=== PATIENT | male | born 1985 | race African-American/Black ===

== ENCOUNTER 2019-11-24 14:31 | Inpatient (IN) | payer OTHER ==
[2019-11-24 17:28] VITALS: BMI 32.3
--- NOTE | 2019-11-24 18:52 | HP ---
"CIWA Score Nausea/Vomitin-No Nausea/No Vomiting Muscle Tremors: 4-Moderate,w/Arms Extend Anxiety: 1-Mildly Anxious Agitation: 1-Slight > Activity Paroxysmal Sweats: No Perspiration Orientation: 1-Uncertain about Date Tacttile Disturbances: 0-None Auditory Disturbances: 0-None Visual Disturbances: 0-None Headache: 0-None Present CIWA-Ar Total Score: 7 - Admission Criteria [facility] Guidelines: Admission for Medically Managed Detox: Requires at least one of the followin. CIWA greater than 12 2. Seizures within the past 24 hours 3. Delirium tremens within the past 24 hours 4. Hallucinations within the past 24 hours 5. Acute intervention needed for co occurring medical disorder 6. Acute intervention needed for co occurring psychiatric disorder 7. Severe withdrawal that cannot be handled at a lower level of care (continued vomiting, continued diarrhea, abnormal vital signs) requiring intravenous medication and/or fluids 8. Patient presents the following: Acute intervention needed for co-occurring med or psych disorder (MIHIR: 0.043 HIV+) Admission Criteria Met: Admission criteria met Admission ROS S - HPI Chief Complaint: Here to get detoxed and get help for my alcohol. States needs sobriety to get an apt. Allergies/Adverse Reactions: Allergies Allergy/AdvReac Type Severity Reaction Status Date / Time sulfur [From Sulfur-8] Allergy Severe Rash Verified 11/24/19 17:11 History of Present Illness: First admission for this 34 yo who presents w/ alcohol use disorder, w/mild withdrawal symptoms, seeking detox. Identifies as female. Preferred name is Toribio. MIHIR: 0.043 UTox: + THC/RAZA Denies seizures, blackout, or overdoses. Alcohol use began at age 16. Currently 2 shots - 4x/day and about 1 pint wine 4x /wk for past 2 years. Last drink about 5 a.m.today. Cocaine use began at age 27. Currently uses 2 sniffs 1-2x/wk Marijuana use began at age 16. Currently uses 2-3 x/wk. Nicotine use began at age 16. Smokes 1/2 PPD. Longest sobriety [id number] ( 1 year) PMHx: HIV+; MHHx: Depression. F/u MH provider via telepsych. Denies thoughts of harming self or others. SHx: Domiciled. Unemployed. Denies legal issues. Search Terms: Kapil Kate, 1985 Search Date: 11/24/2019 06:50:57 PM The Drug Utilization Report below displays all of the controlled substance prescriptions, if any, that your patient has filled in the last twelve months. The information displayed on this report is compiled from pharmacy submissions to the Department, and accurately reflects the information as submitted by the pharmacies. This report was requested by: Louann Lainez | Reference #: [id number] There are no results for the search terms that you entered. Exam Limitations: No Limitations - Ebola screening Have you traveled outside of the country in the last 21 days: No Have you had contact with anyone from an Ebola affected area: No Have you been sick,other than usual withdrawal symptoms: No Do you have a fever: No - Review of Systems Constitutional: Weight Stable EENT: reports: No Symptoms Reported Respiratory: reports: No Symptoms reported Cardiac: reports: No Symptoms Reported GI: reports: Indigestion (Heart burn - r/t spicey food) : reports: No Symptoms Reported Musculoskeletal: reports: No Symptoms Reported Integumentary: reports: No Symptoms Reported Neuro: reports: Tremors Endocrine: reports: No Symptoms Reported Hematology: reports: Anemia (HIV+) Psychiatric: reports: Judgement Intact, Orientated x3 (Missed date by 1 day), Anxious, Depressed (Denies thoughts of harming self or others) Patient History - PPD History Previous Implant?: Yes Documented Results: Negative w/proof Implanted On Prior [facility] Admission?: No PPD to be Administered?: Yes - Smoking Cessation Smoking history: Current every day smoker Have you smoked in the past 12 months: Yes Aproximately how many cigarettes per day: 10 Hx Chewing Tobacco Use: No Initiated information on smoking cessation: Yes 'Breaking Loose' booklet given: 11/24/19 - Substance & Tx. History Hx Alcohol Use: Yes Hx Substance Use: Yes Substance Use Type: Alcohol, Cocaine Hx Substance Use Treatment: No (Hs tried stopping on own) - Substances abused Alcohol Substance route: Oral Frequency: 3-6 times per week Amount used: a fifth vodka and alexandr Age of first use: 16 Date of last use: 11/23/19 Cocaine Substance route: Inhalation Frequency: 1-3 times last 30 days Amount used: half bag Age of first use: 28 Date of last use: 11/18/19 Admission Physical Exam [facility] - Vital Signs Vital Signs: Vital Signs - 24 hr 11/24/19 16:51 Temperature 98.7 F Pulse Rate 73 Respiratory 16 Rate Blood Pressure 152/89 - Physical General Appearance: Yes: Nourished, Mild Distress, Tremorous, Sweating, Anxious HEENTM: Yes: EOMI, Hearing grossly Normal, Normocephalic, Normal Voice, YESSENIA, Pharynx Normal Respiratory: Yes: Lungs Clear (pULSE OX = 97 %), Normal Breath Sounds, No Respiratory Distress Neck: Yes: No masses,lesions,Nodules, Supple Breast: Yes: Breast Exam Deferred Cardiology: Yes: Regular Rhythm, Regular Rate, S1, S2 Abdominal: Yes: Non Tender, Flat, Soft, Increased Bowel Sounds Genitourinary: Yes: Within Normal Limits Back: Yes: Normal Inspection Extremities: Yes: Normal Capillary Refill, Normal Inspection 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, Alert, Motor Strength 5/5, Normal Mood /Affect, Normal Response Integumentary: Yes: Normal Color, Warm Lymphatic: Yes: Within Normal Limits - Diagnostic (1) Alcohol dependence with withdrawal, uncomplicated Current Visit: Yes Status: Acute (2) Hx of human immunodeficiency virus infection Current Visit: Yes Status: Chronic (3) HTN (hypertension) Current Visit: Yes Status: Chronic Qualifiers: Hypertension type: unspecified Qualified Code(s): I10 - Essential (primary ) hypertension (4) Cannabis dependence, uncomplicated Current Visit: Yes Status: Chronic (5) Cocaine dependence, uncomplicated Current Visit: Yes Status: Chronic (6) Nicotine dependence, unspecified, uncomplicated Current Visit: Yes Status: Chronic Qualifiers: Nicotine product type: cigarettes Qualified Code(s): F17.210 - Nicotine dependence, cigarettes, uncomplicated Cleared for Admission [facility] - Detox or Rehab [facility] Level of Care: Medically Managed Detox Regimen/Protocol: Librium Claeared for Rehab Admission: No Breathalyzer - Breathalyzer Breathalyzer: 0.043 Urine Drug Screen - Test Device Lot number: [id number] Expiration date: 06/11/21 - Control Is test valid?: Yes - Results Drug screen NEGATIVE: No Urine drug screen results: THC-Marijuana, RAZA-Cocaine Inpatient Rehab Admission - Rehab Decision to Admit Inpatient rehab admission?: No"
[2019-11-24] MEDS ORDERED: MELATONIN 5 MG TABLETS PO PRN (19:16)
[2019-11-24] MEDS ORDERED: BISMUTH SUBSALICYLATE 524 MG/30 ML UD PO PRN (19:16)
[2019-11-24] MEDS ORDERED: NICOTINE POLACRILEX 2 MG GUM BUC PRN (19:16)
[2019-11-24] MEDS ORDERED: ACETAMINOPHEN 325 MG TABLET (FP) PO PRN ×2 (19:16)
[2019-11-24] MEDS ORDERED: chlordiazePOXIDE HCL 10 MG CAPSULE PO PRN (19:16)
[2019-11-24] MEDS ORDERED: MAGNESIUM CITRATE 300 ML BOTTLE PO PRN (19:16)
[2019-11-24] MEDS ORDERED: IBUPROFEN 400 MG TABLET (FP) PO PRN (19:16)
[2019-11-24] MEDS ORDERED: MAG HYDROX/AL HYDROX/SIMETH 30 ML UNIT-DOSE CUP PO PRN (19:16)
[2019-11-24] MEDS ORDERED: MENTHOL/PHENOL 1 EACH UD MM PRN (19:16)
[2019-11-24] MEDS ORDERED: MAGNESIUM HYDROX 2400MG/30ML ORAL SUSPENSION 30 ML CUP PO PRN (19:16)
[2019-11-24] MEDS ORDERED: guaiFENesin 200 MG/10 ML 10 ML UNIT-DOSE CUPS PO PRN (19:16)
[2019-11-24] MEDS: chlordiazePOXIDE HCL 25 MG CAPSULE PO SCH (20:52)
[2019-11-24] MEDS: THIAMINE HCL 100 MG TABLET (FP) PO SCH (23:06)
[2019-11-25] MEDS: chlordiazePOXIDE HCL 25 MG CAPSULE PO SCH ×3 (05:51→22:21)
[2019-11-25 09:49] LABS: HEMOGLOBIN 14.7 GM/dL (11.7-16.9); MCH 31.9 pg (25.7-33.7); MCHC 33.4 g/dl (32.0-35.9); MEAN CELL VOLUME 95.5 fl (80-96); PLATELET COUNT 232 K/MM3 (134-434); RBC 4.61 M/mm3 (4.00-5.60); RDW 14.4 % (11.9-15.9); WHITE BLOOD COUNT 5.7 K/mm3 (4.0-10.0)
[2019-11-25] MEDS ORDERED: PATIENT'S OWN MEDICATION (NON-FORMULARY) (Emtricitabine/Tenofovir [Truvada -] 1 TAB) PO SCH (10:00)
[2019-11-25 10:16] LABS: ALBUMIN 3.7 g/dl (3.4-5.0); BILIRUBIN,TOTAL 0.6 mg/dL (0.2-1); BLOOD UREA NITROGEN 10.2 mg/dL (7-18); CREATININE 1.1 mg/dL (0.55-1.3); POTASSIUM 3.8 mmol/L (3.5-5.1); TOT PROT 8.3 g/dl (6.4-8.2)
[2019-11-25] MEDS: PRENATAL VITAMINS W/ FOLIC ACID TABLET (FP) PO SCH (10:16)
[2019-11-25] MEDS: NICOTINE 14 MG/24 HOURS TOPICAL PATCH TD SCH (10:17)
[2019-11-25 10:18] LABS: URINE APPEARANCE CLEAR; URINE BILIRUBIN NEGATIVE (NEGATIVE); URINE COLOR YELLOW; URINE GLUCOSE (UA) NEGATIVE (NEGATIVE); URINE KETONE NEGATIVE (NEGATIVE); URINE LEUK ESTERASE NEGATIVE (NEGATIVE); URINE NITRITE NEGATIVE (NEGATIVE); URINE PROTEIN TRACE (NEGATIVE)
--- NOTE | 2019-11-25 12:44 | EKG ---
Test Reason : Blood Pressure : / mmHG Vent. Rate : 067 BPM Atrial Rate : 067 BPM P-R Int : 166 ms QRS Dur : 094 ms QT Int : 422 ms P-R-T Axes : 062 045 060 degrees QTc Int : 445 ms NORMAL SINUS RHYTHM MODERATE VOLTAGE CRITERIA FOR LVH, MAY BE NORMAL VARIANT Confirmed by MD PADDY, SUSHIL ([id number]) on 11/25/2019 12:44:23 PM Referred By: Confirmed By:SUSHIL THOMASON MD
--- NOTE | 2019-11-25 14:31 | PN ---
S CIWA - CIWA Score Nausea/Vomitin-No Nausea/No Vomiting Muscle Tremors: 4-Moderate,w/Arms Extend Anxiety: 3 Agitation: 0-Normal Activity Paroxysmal Sweats: 2 Orientation: 0-Oriented Tacttile Disturbances: 0-None Auditory Disturbances: 0-None Visual Disturbances: 1-Very Mild Sensitivity Headache: 2-Mild CIWA-Ar Total Score: 12 S Progress Note (SOAP) Subjective: 34 years old male admitted on 11/24 for alcohol withdrawal sx management treating with librium detox regimen reports that he does not take truvada but symtuza one tabe every day last dose yesterday blurb writer call [phone] lastest refilled date was 10/27/20 patient brought in bottle of symtuza patient has his own medication encourage bringing to pharmacy for identification Objective: 11/25/19 14:40 Vital Signs Temperature 98.5 F 11/25/19 13:14 Pulse Rate 65 11/25/19 13:14 Respiratory Rate 18 11/25/19 13:14 Blood Pressure 142/92 11/25/19 13:14 O2 Sat by Pulse Oximetry (%) Laboratory Last Values WBC 5.7 K/mm3 (4.0-10.0) 11/25/19 07:20 RBC 4.61 M/mm3 (4.00-5.60) 11/25/19 07:20 Hgb 14.7 GM/dL (11.7-16.9) 11/25/19 07:20 Hct 44.0 % (35.4-49) 11/25/19 07:20 MCV 95.5 fl (80-96) 11/25/19 07:20 MCH 31.9 pg (25.7-33.7) 11/25/19 07:20 MCHC 33.4 g/dl (32.0-35.9) 11/25/19 07:20 RDW 14.4 % (11.9-15.9) 11/25/19 07:20 Plt Count 232 K/MM3 (134-434) 11/25/19 07:20 MPV 9.0 fl (7.5-11.1) 11/25/19 07:20 Sodium 138 mmol/L (136-145) 11/25/19 07:20 Potassium 3.8 mmol/L (3.5-5.1) 11/25/19 07:20 Chloride 105 mmol/L (98-107) 11/25/19 07:20 Carbon Dioxide 27 mmol/L (21-32) 11/25/19 07:20 Anion Gap 6 MMOL/L (8-16) L 11/25/19 07:20 BUN 10.2 mg/dL (7-18) 11/25/19 07:20 Creatinine 1.1 mg/dL (0.55-1.3) 11/25/19 07:20 Est GFR (CKD-EPI)AfAm 101.69 11/25/19 07:20 Est GFR (CKD-EPI)NonAf 87.74 11/25/19 07:20 Random Glucose 94 mg/dL (74-106) 11/25/19 07:20 Calcium 9.0 mg/dL (8.5-10.1) 11/25/19 07:20 Total Bilirubin 0.6 mg/dL (0.2-1) 11/25/19 07:20 AST 87 U/L (15-37) H 11/25/19 07:20 ALT 81 U/L (13-61) H 11/25/19 07:20 Alkaline Phosphatase 107 U/L (45-117) 11/25/19 07:20 Total Protein 8.3 g/dl (6.4-8.2) H 11/25/19 07:20 Albumin 3.7 g/dl (3.4-5.0) 11/25/19 07:20 Urine Color Yellow 11/25/19 07:20 Urine Appearance Clear 11/25/19 07:20 Urine pH 7.0 (5.0-8.0) 11/25/19 07:20 Ur Specific [place] 1.021 (1.010-1.035) 11/25/19 07:20 Urine Protein Trace (NEGATIVE) 11/25/19 07:20 Urine Glucose (UA) Negative (NEGATIVE) 11/25/19 07:20 Urine Ketones Negative (NEGATIVE) 11/25/19 07:20 Urine Blood Negative (NEGATIVE) 11/25/19 07:20 Urine Nitrite Negative (NEGATIVE) 11/25/19 07:20 Urine Bilirubin Negative (NEGATIVE) 11/25/19 07:20 Urine Urobilinogen 1.0 mg/dL (0.2-1.0) 11/25/19 07:20 Ur Leukocyte Esterase Negative (NEGATIVE) 11/25/19 07:20 RPR Titer Nonreactive (NONREACTIVE) 11/25/19 07:20 lab noted Assessment: 11/25/19 14:40 alcohol withdrawal Plan: librium regimen
--- NOTE | 2019-11-25 15:14 | CONSULT ---
[facility] Psychiatric Consult - Data Date of interview: 11/25/19 Admission source: [facility] Identifying data: First visit to [facility] and admission to [address] [place] [address] for detoxification treatment. CARLOS ALBERTO issues : alcohol, cocaine, cannabis, nicotine. Patient s single, no dependents, domiciled ([place] setting), unemployed and supported on welfare. Substance Abuse History: Discussed with the patient. Details in current [facility] report as follows : Smoking history: Current every day smoker. Have you smoked in the past 12 months: Yes. Aproximately how many cigarettes per day: 10. Hx Chewing Tobacco Use: No. Initiated information on smoking cessation: Yes. ' Breaking Loose' booklet given: 11/24/19. - Substance & Tx. History. Hx Alcohol Use: Yes. Hx Substance Use: Yes. Substance Use Type: Alcohol, Cocaine. Hx Substance Use Treatment: No (Hs tried stopping on own). - Substances abused. Alcohol. Substance route: Oral. Frequency: 3-6 times per week. Amount used: a fifth vodka and alexandr. Age of first use: 16. Date of last use: 11/23/19. Cocaine. Substance route: Inhalation. Frequency: 1- 3 times last 30 days. Amount used: half bag. Age of first use: 28. Date of last use: 11/18/19 Medical History: Medical profile is remarkable for hypertension and HIV infection since 2009 (on ART medications). Psychiatric History: Patient denies history of psychiatric hospitalizations. Mr Kate reports psychiatric follow-up via telepsychiatry at his [place] residence in the [place]. Has no recall of the names of his psychotropic medications and he is vague about his diagnosis. " I think that this is a medication for depression." Patient denies history of suicide attempts. Physical/Sexual Abuse/Trauma History: Not discussed. Patient declines. Additional Comment: Urine drug screen results: THC-Marijuana, RAZA-Cocaine. Noted. Mental Status Exam - Mental Status Exam Alert and Oriented to: Time, Place, Person Cognitive Function: Good Patient Appearance: Well Groomed Mood: Nervous, Withdrawn Affect: Mood Congruent, Constricted Patient Behavior: Fatigued, Appropriate, Cooperative Speech Pattern: Clear Voice Loudness: Normal Thought Process: Intact, Goal Oriented Thought Disorder: Not Present Hallucinations: Denies Suicidal Ideation: Denies Homicidal Ideation: Denies Insight/Judgement: Poor Sleep: Well Appetite: Good Gait/Station: Other (not observed ; lying in bed) Psychiatric Findings - Problem List ([place] 1, 2,3) (1) Alcohol dependence with withdrawal, uncomplicated Current Visit: Yes Status: Acute (2) Cannabis dependence, uncomplicated Current Visit: Yes Status: Chronic (3) Cocaine dependence, uncomplicated Current Visit: Yes Status: Chronic (4) Nicotine dependence, unspecified, uncomplicated Current Visit: Yes Status: Chronic Qualifiers: Nicotine product type: cigarettes Qualified Code(s): F17.210 - Nicotine dependence, cigarettes, uncomplicated (5) Substance induced mood disorder Current Visit: Yes Status: Suspected - Initial Treatment Plan Initial Treatment Plan: Psychoeducation. Sleep hygiene. Detoxification. Support. AA meetings. Observation.
[2019-11-25] MEDS: PATIENT'S OWN MEDICATION (NON-FORMULARY) (Darunavir/Cob/Emtri/Tenof Alaf 1 EACH) PO SCH (15:37)
[2019-11-25] MEDS: THIAMINE HCL 100 MG TABLET (FP) PO SCH (22:21)
[2019-11-26] MEDS: chlordiazePOXIDE 5 MG CAPSULE PO SCH ×3 (06:27→22:13)
[2019-11-26] MEDS: PRENATAL VITAMINS W/ FOLIC ACID TABLET (FP) PO SCH (10:10)
[2019-11-26] MEDS: NICOTINE 14 MG/24 HOURS TOPICAL PATCH TD SCH (10:10)
[2019-11-26] MEDS: PATIENT'S OWN MEDICATION (NON-FORMULARY) (Darunavir/Cob/Emtri/Tenof Alaf 1 EACH) PO SCH (10:10)
--- NOTE | 2019-11-26 13:45 | PN ---
S CIWA - CIWA Score Nausea/Vomitin-Mild Nausea/No Vomiting Muscle Tremors: 1-None Visible, but [place] Anxiety: 1-Mildly Anxious Agitation: 0-Normal Activity Paroxysmal Sweats: 1-Minimal Palms Moist Orientation: 0-Oriented Tacttile Disturbances: 1-Very Mild Itch/Numbness Auditory Disturbances: 0-None Visual Disturbances: 0-None Headache: 0-None Present CIWA-Ar Total Score: 5 S Progress Note (SOAP) Subjective: i'm feeling better , i want to go home tomorrow - Objective: 11/26/19 13:46 Vital Signs Temperature 98.0 F 11/26/19 13:16 Pulse Rate 68 11/26/19 13:16 Respiratory Rate 20 11/26/19 13:16 Blood Pressure 152/100 11/26/19 13:16 O2 Sat by Pulse Oximetry (%) Laboratory Tests 11/25/19 11/25/19 11/25/19 07:20 07:20 07:20 WBC 5.7 RBC 4.61 Hgb 14.7 Hct 44.0 MCV 95.5 MCH 31.9 MCHC 33.4 RDW 14.4 Plt Count 232 MPV 9.0 Sodium 138 Potassium 3.8 Chloride 105 Carbon Dioxide 27 Anion Gap 6 L BUN 10.2 Creatinine 1.1 Est GFR (CKD-EPI)AfAm 101.69 Est GFR (CKD-EPI)NonAf 87.74 Random Glucose 94 Calcium 9.0 Total Bilirubin 0.6 AST 87 H ALT 81 H Alkaline Phosphatase 107 Total Protein 8.3 H Albumin 3.7 Urine Color Urine Appearance Urine pH Ur Specific [place] Urine Protein Urine Glucose (UA) Urine Ketones Urine Blood Urine Nitrite Urine Bilirubin Urine Urobilinogen Ur Leukocyte Esterase RPR Titer Nonreactive 11/25/19 07:20 WBC RBC Hgb Hct MCV MCH MCHC RDW Plt Count MPV Sodium Potassium Chloride Carbon Dioxide Anion Gap BUN Creatinine Est GFR (CKD-EPI)AfAm Est GFR (CKD-EPI)NonAf Random Glucose Calcium Total Bilirubin AST ALT Alkaline Phosphatase Total Protein Albumin Urine Color Yellow Urine Appearance Clear Urine pH 7.0 Ur Specific [place] 1.021 Urine Protein Trace Urine Glucose (UA) Negative Urine Ketones Negative Urine Blood Negative Urine Nitrite Negative Urine Bilirubin Negative Urine Urobilinogen 1.0 Ur Leukocyte Esterase Negative RPR Titer pt aox3 in nad ambulating Assessment: 11/26/19 13:47 withdrawal sx's elevated transaminases Plan: cont. detox increase fluids d/c in am
[2019-11-26] MEDS: THIAMINE HCL 100 MG TABLET (FP) PO SCH (22:14)
[2019-11-27] MEDS ORDERED: chlordiazePOXIDE HCL 10 MG CAPSULE PO PRN
[2019-11-27] MEDS ORDERED: chlordiazePOXIDE HCL 10 MG CAPSULE PO SCH (05:00)
[2019-11-27 06:23] VITALS: BP 119/81; PULSE 68; TEMP 97
[2019-11-28] MEDS ORDERED: chlordiazePOXIDE HCL 10 MG CAPSULE PO ONE (05:00)
== END 2019-11-27 06:43 | disposition home or self-care (01) | DRG 774 ==
LOC: YASAS 14:31 → Y3N 19:27
PROVIDERS: ADMIT Allergy & Immunology; ATTEND Allergy & Immunology
PROC: HZ2ZZZZ Detoxification Services for Substance Abuse Treatment (ICD-10-PCS; principal; 2019-11-24)
DX: F10.230 Alcohol dependence with withdrawal, uncomplicated (principal); F14.20 Cocaine dependence, uncomplicated; F12.20 Cannabis dependence, uncomplicated; F17.210 Nicotine dependence, cigarettes, uncomplicated; F19.24 Other psychoactive substance dependence with psychoactive substance-induced mood disorder; F32.9 Major depressive disorder, single episode, unspecified; Z21 Asymptomatic human immunodeficiency virus [HIV] infection status; D64.9 Anemia, unspecified; I10 Essential (primary) hypertension; R74.0 Nonspecific elevation of levels of transaminase and lactic acid dehydrogenase [LDH]; Z88.2 Allergy status to sulfonamides
CPT/HCPCS: 36415; 80053; 81003; 85027; 86593; 93005; 93010